=== PATIENT | female | born 1975 | race Asian ===

== ENCOUNTER 2017-06-08 10:36 | Inpatient (IN) | payer BC ==
[~2017-06-08] VITALS: Ht 165.1 cm; Wt 77.6 kg
[2017-06-08 12:00] VITALS: BP 113/62
[2017-06-08] MEDS ORDERED: OXYTOCIN 20 UNITS/LR PREMIX 1,000 ML IV SCH (13:07)
[2017-06-08] MEDS ORDERED: CARBOPROST 250 MCG/ML AMP IM PRN (13:10)
[2017-06-08] MEDS ORDERED: PROMETHAZINE 25 MG/ML VIAL IVP PRN (13:10)
[2017-06-08] MEDS ORDERED: IBUPROFEN 800 MG TAB PO PRN (13:10)
[2017-06-08] MEDS ORDERED: NALBUPHINE 10 MG/ML AMP IVP PRN (13:10)
[2017-06-08] MEDS ORDERED: METHYLERGONOVINE 0.2 MG/ML AMP IM SCH (13:10)
[2017-06-08] MEDS ORDERED: OXYTOCIN 10 UNITS/ML VIAL IM SCH (13:30)
[2017-06-08] MEDS: LACTATED RINGERS 1,000 ML IV SCH ×2 (13:42→15:27)
[2017-06-08] MEDS ORDERED: NALBUPHINE HYDROCHLORIDE 10 MG/ML VIAL ONE (13:57)
[2017-06-08] MEDS ORDERED: PROMETHAZINE 25 MG/ML VIAL ONE (13:57)
[2017-06-08 14:39] LABS: APPEARANCE,URINE CLEAR (CLEAR); BILIRUBIN,URINE NEGATIVE (NEGATIVE); BLOOD, URINE 3+ (NEGATIVE); COLOR,URINE YELLOW (YELLOW); LEUKOCYTE ESTERASE ,URINE NEGATIVE (NEGATIVE); NITRITE, URINE NEGATIVE (NEGATIVE); PH,URINE 6.5 (5.0-9.0); PROTEIN,URINE NEGATIVE (NEGATIVE); UGLUCOSE TRACE (NEGATIVE); UROBILINOGEN,URINE 0.2 EU/dL (0.2 - 1)
[2017-06-08 14:54] LABS: BASOPHILS # (AUTO) 0.1 K/uL (0.00-0.22); BASOPHILS % (AUTO) 1.3 % (0.0-2.0); EOSINOPHILS # (AUTO) 0.2 K/uL (0-0.4); EOSINOPHILS % (AUTO) 2.4 % (0.0-4.0); HEMATOCRIT 36.8 % (36-48); HEMOGLOBIN 12.5 g/dL (12.0-16.0); LYMPHOCYTES # (AUTO) 1.7 K/uL (2.5-16.5); LYMPHOCYTES % (AUTO) 17.7 % (20.5-51.1); MEAN CORPUSCULAR HEMOGLOBIN 32 pg (27-31); MEAN CORPUSCULAR HGB CONC 34 g/dL (33-37); MEAN CORPUSCULAR VOLUME 95 fL (80-94); MONOCYTES # (AUTO) 0.8 K/uL (0.8-1.0); MONOCYTES % (AUTO) 8.4 % (1.7-9.3); NEUTROPHILS % (AUTO) 70.2 % (42.2-75.2); PLATELET COUNT (AUTO) 126 K/uL (140-450); RED BLOOD CELL COUNT(AUTO) 3.85 MIL/uL (4.20-5.40); WHITE BLOOD COUNT (AUTO) 9.8 K/uL (4.8-10.8)
[2017-06-08 14:55] LABS: ANION GAP 14.7 (8-16); CALCIUM 8.4 mg/dL (8.5-10.1); CREATININE 0.6 mg/dL (0.6-1.3); POTASSIUM 3.7 mmol/L (3.5-5.1)
[2017-06-08 15:00] LABS: ALBUMIN 2.7 g/dL (3.4-5.0); TOTAL BILIRUBIN 0.3 mg/dL (0.0-1.0); TOTAL PROTEIN, SERUM 6.8 g/dL (6.4-8.2)
[2017-06-08 15:21] LABS: WBC,URINE 0-5 /HPF (0-5)
[2017-06-08 15:22] LABS: BACTERIA,URINE 1+ /HPF (None Seen)
[2017-06-08] MEDS ORDERED: OXYTOCIN 20 UNITS/LR PREMIX 1,000 ML IV ONE (16:05)
[2017-06-08] MEDS ORDERED: OXYTOCIN 10 UNITS/ML VIAL ONE (16:36)
[2017-06-08] MEDS ORDERED: BENZOCAINE/MENTHOL 20%-0.5% 60 GM CAN TP PRN (18:20)
[2017-06-08] MEDS ORDERED: MEASLES, MUMPS, AND RUBELLA 1 VIAL SQVAC PRN (18:20)
[2017-06-08] MEDS ORDERED: oxyCODONE/APAP 5/325 MG 1 TAB TAB PO PRN (18:20)
[2017-06-08] MEDS ORDERED: HYDROcodone/APAP 5/325 MG 1 TAB TAB PO PRN (18:20)
[2017-06-08] MEDS ORDERED: TEMAZEPAM 15 MG CAP PO PRN (18:20)
[2017-06-08] MEDS ORDERED: WITCH HAZEL 40 PAD PACKAGE TP PRN (18:20)
[2017-06-08] MEDS ORDERED: SODIUM PHOSPHATE 118 ML ENEM RC PRN (18:20)
[2017-06-08] MEDS ORDERED: DOCUSATE SOD/SENNA 50/8.6 MG 1 TAB PO SCH (21:00)
[2017-06-09 07:32] LABS: HEMOGLOBIN 11.7 g/dL (12.0-16.0)
--- NOTE | 2017-06-09 08:29 | NUR ---
PATIENT HAS BEEN SCREENED AND CATEGORIZED LOW NUTRITION RISK. PATIENT WILL BE SEEN WITHIN 7 DAYS OF ADMISSION. 06/15/[address]
[2017-06-09] MEDS ORDERED: IBUPROFEN 800 MG TAB PO PRN (11:55)
== END 2017-06-10 12:45 | disposition home or self-care (01) | DRG 775 ==
LOC: OBSVTOIN 10:36 → MLD 10:36 → MFCC 20:22
PROVIDERS: ADMIT Obstetrics & Gynecology; ATTEND Obstetrics & Gynecology
PROC: 10E0XZZ Delivery of Products of Conception, External Approach (ICD-10-PCS; principal; 2017-06-08)
PROC: 10907ZC Drainage of Amniotic Fluid, Therapeutic from Products of Conception, Via Natural or Artificial Opening (ICD-10-PCS; 2017-06-08)
DX: O24.429 Gestational diabetes mellitus in childbirth, unspecified control (principal); O69.81X0 Labor and delivery complicated by cord around neck, without compression, not applicable or unspecified; Z37.0 Single live birth; Z28.21 Immunization not carried out because of patient refusal; Z83.2 Family history of diseases of the blood and blood-forming organs and certain disorders involving the immune mechanism; O09.523 Supervision of elderly multigravida, third trimester; Z3A.38 38 weeks gestation of pregnancy
CPT/HCPCS: 36415; 59409; 76805; 80053; 81001; 85018; 85025; 86592; 86886; 86900; 86901; J2300; J2550; J2590; J7120